=== PATIENT | male | born 1965 | race Caucasian/White ===

== ENCOUNTER 2022-10-18 11:53 | Emergency (ER) | payer MEDICAID ==
[~2022-10-18] VITALS: Ht 188 cm; Wt 122.5 kg
[2022-10-18 12:09] VITALS: BP_SYST 150
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
--- NOTE | 2022-10-18 15:02 | NUR ---
Patient is discharged, but refuses to return to [facility]. Test Administrator on site notified. Kacy at [phone].
--- NOTE | 2022-10-18 15:53 | NUR ---
ACCOMPANIED CUSTOM WOOD STAIR BUILDER, MARIA LUZ, TO SPEAK WITH PATIENT. PATIENT WAS INFORMED THAT OUR CUSTOM WOOD STAIR BUILDER SPOKE TO NAYANA THE CUSTOM WOOD STAIR BUILDER AT [facility]. PATIENT HAS BEEN GIVEN 5 SNFS THAT PATIENT CAN BE ASSISTED TO TRANSFER TO BUT HAS TO BE INITIATED BY PATIENT AND FAMILY. NAYANA HAS ALSO OBTAINED AN ASSISTED LIVING VOUCHER FOR PATIENT BUT AGAIN PATIENT HAS TO INITIATE THE PLACEMENT OF THE ASSISTED LIVING. THERE HAS BEEN MULTIPLE CONVERSATIONS WITH FAMILY AND SNF ABOUT PATIENT EXAGERATING ON WHAT ACTUALLY HAPPENED AND RECENTLY HAD AN RESIDENTIAL CONFERENCE WITH STEPMOTHER. PATIENT WILL NOW BE TRANSFERRED BACK TO [facility] AND IS IN AGREEANCE.
--- NOTE | 2022-10-18 16:16 | NUR ---
Manager News re: return to SNF Received telephone call from GARDENIA Bridges who advised that the patient has orders to discharge, but does not want to return to [facility]. The patient is verbalizing multiple problems that he has with the SNF, he called the budsman, and his mother has . I called NIGEL Melgoza at [facility]. We discussed the patient and the current incident from today. Per SW, the patient has frequent complaints regarding this facility and the previous facility. The patient is known to make false accusations that frequently require intervention from the [facility]. The states she has assisted with getting the patient approved for the Assisted Living Waiver Application and provided the patient with 5 SNF placement options that he may want to consider to transfer to. The facility has had a meeting with the patient, his mother, and his step mother about potential transfer options. I met with patient and GARDENIA Khanna at bedside. I informed the patient about my conversation with the SNF and explained the SNFs role and the patient/family responsibility. I advised the patient that he and his step mother should utilize the resources that the SNF has provided to him. patient is aware that he will return back to the SNF, and once he returns, he will need to look into the resources that have already been provided to him. The patient is in agreement to the return back to the SNF, and states he will look into the resources provided to him for potential transfer opportunities. NIGEL Melgoza at [facility]: [phone]
--- NOTE | 2022-10-18 17:00 | NUR ---
Patient given a sandwich, apple juice, and custard.
--- NOTE | 2022-10-18 18:14 | NUR ---
Discharge paperwork signed and reviewed, waiting on transport.
[2022-10-18 20:56] VITALS: BP_SYST 132
[2022-10-18] MEDS ORDERED: ACETAMINOPHEN 325 MG TABLET PO ONE (21:15)
== END 2022-10-18 20:56 | disposition home or self-care (01) ==
LOC: EDBD 11:53 → SED 11:53
DX: S80.212A Abrasion, left knee, initial encounter (principal); E11.9 Type 2 diabetes mellitus without complications; I10 Essential (primary) hypertension; E78.5 Hyperlipidemia, unspecified; Z79.899 Other long term (current) drug therapy; W01.0XXA Fall on same level from slipping, tripping and stumbling without subsequent striking against object, initial encounter; Y93.89 Activity, other specified; Y92.89 Other specified places as the place of occurrence of the external cause; Y99.8 Other external cause status
CPT/HCPCS: 72170-TC; 73502; 73564; 99284